=== PATIENT | female | born 1975 | race Caucasian/White ===

== ENCOUNTER 2023-01-18 10:48 | Outpatient (CLI) | payer MEDICAID, SELFPAY | END 2023-01-18 10:49 | disposition home or self-care (01) | LOC: SPT 10:49 | PROVIDERS: PCP Registered Nurse; Visit Provider Podiatrist Foot & Ankle Surgery | DX: Z46.89 Encounter for fitting and adjustment of other specified devices (principal); M65.28 Calcific tendinitis, other site | CPT/HCPCS: 97760; L4361 ==

== ENCOUNTER → 2023-03-20 08:53 | Outpatient (BNVA) | payer MEDICAID, SELFPAY | PROVIDERS: PCP Registered Nurse; Visit Provider Podiatrist Foot & Ankle Surgery | DX: M65.28 Calcific tendinitis, other site (principal); S99.912A Unspecified injury of left ankle, initial encounter; X58.XXXA Exposure to other specified factors, initial encounter | CPT/HCPCS: 73610 ==

== ENCOUNTER 2023-06-16 06:18 | Day surgery (SDC) | payer MEDICAID, SELFPAY ==
[2023-06-16] VITALS (10 sets, daily range): BP systolic 128–149; BP diastolic 79–109; PULSE 70–86; RESP 12–18; TEMP 36.1–36.4; O2SAT 97–100; BMI 35.4
--- NOTE | 2023-06-16 | XR_ITS ---
WS: [id number] C-ARM RADIOGRAPHS LEFT FOOT; 1 IMAGES HISTORY: YOLETTE PICS COMPARISON: None available. Single image of the calcaneus is submitted. IMPRESSION: Intraoperative imaging. Single image of the calcaneus submitted.
[2023-06-16] MEDS: sodium chloride 0.9% 1,000 ML 30 ML IV (06:40)
[2023-06-16] MEDS: midazolam 1 mg/mL INJ 5 ML 5 MG IVP (07:06)
--- NOTE | 2023-06-16 07:10 | PC.NURSE ---
2 mg versed given for block per Dr Porter. Patient on bedside monitor. VSS.
--- NOTE | 2023-06-16 07:43 | PC.NURSE ---
Time out prior to block with Dr Porter, all agree. Pt tolerated block well.
--- NOTE | 2023-06-16 08:04 | ANES.PREANE2 ---
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 Operation Date: 06/16/23 08:00 Proposed Procedures p Tendon Repair Foot Achilles Tendon Repair(Left) - Hugo Lindsay DPM s Ankle Osteotomy/ Osteotomy with exostectomy left calcaneus(Left) - Hugo Lindsay DPM s Gastrocnemius Recession/Left gastrocnemius recessio(Left) - Hugo Lindsay DPM Was Beta Shaquille taken within 24 hours: N/A Was Clonidine taken within 24 hours: N/A Last intake: Intake Last Liquid Date 06/15/23 Last Liquid Time 21:30 Last Solid Date 06/15/23 Last Solid Time 21:30 Social No tobacco Exam alert, oriented x 3, clear to auscultation bilaterally and regular rate & rhythm Airway Submandibular: within normal limits Cervical ROM: within normal limits Mallampati: Class III Dentition: chipped History/ROS No significant history except as noted and No significant complaints Metabolic Thyroid Disease Anesthetic Plan ASA status: 2 Anesthesia: General and Regional (specify below) Other: Popliteal block requested by surgeon for post-op pain Risk of > 500 ml blood loss (7ml/kg in children): No Medications/Allergies Home Medications Medication Instructions Recorded Confirmed Last Taken Type Cam Boot to left #1 ea 01/18/23 06/16/23 Unknown Rx etonogestrel 0.12 mg-ethinyl 0.12 ea vaginal DIRECTED 01/18/23 06/16/23 06/16/23 History estradiol 0.015 mg/24 hr vaginal ring (Hector) levothyroxine 112 mcg tablet 112 mcg PO DAILY 01/18/23 06/16/23 06/14/23 History oxybutynin chloride 5 mg 5 mg PO DAILY 01/18/23 06/16/23 06/15/23 History tablet,extended release 24 hr Heel lift to left #1 ea 02/08/23 06/16/23 Unknown Rx hydrocodone 10 mg-acetaminophen 1 tab PO Q6H PRN pain 7 days #28 06/15/23 Unknown Rx 325 mg tablet tabs Allergies Allergy/AdvReac Type Severity Reaction Status Date / Time latex Allergy ALGY-Rash Verified 06/16/23 06:29 Current Medications Generic Name Dose Route Start Last Admin Trade Name Freq PRN Reason Stop Dose Admin Sodium Chloride 1,000 mls @ 30 mls/hr 06/16/23 06:30 06/16/23 06:40 Sodium Chloride 0.9% IV 06/17/23 06:29 30 mls/hr .Q24H INO Administration Data Anesthesia Cardiac Studies: No Data to Display
--- NOTE | 2023-06-16 08:06 | W.PM.OPSUD ---
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
[2023-06-16 08:31] LABS: OR HCG Qualitative Urine Negative (Negative)
[2023-06-16] MEDS: ceFAZolin 2,000 MG in sodium chloride 0.9% (plus) 50 ML 100 MG IV (08:33)
--- NOTE | 2023-06-16 09:49 | P.BOP_ITS ---
Date of Procedure: 06/16/23 Surgeon: Hugo Lindsay D.P.M. Cargo And Container Inspector(s): Berna EDOUARD Alex Procedure(s) performed: Left Caridad's resection and Achilles repair. Findings of the procedure(s): None Estimated blood loss: 5 mL Specimen(s) removed: None Post-operative diagnosis: Left Caridad's with left Achilles tear. No complications with anesthesia or surgery.
--- NOTE | 2023-06-16 14:24 | ANE.PACU2 ---
Inpatient post-anesthesia follow up: Airway intact: Yes Vital signs: Temperature 97.0 F Pulse Rate 76 Respiratory Rate 18 Blood Pressure 144/95 Pulse Oximetry 99 Oxygen Delivery Me thod Room Air Oxygen Flow Rate Fraction of Inspir ed Oxygen Hydration adequate: Yes Nausea and vomiting: No Pain level: Other Pain level: No pain Mental status: Baseline
--- NOTE | 2023-06-16 15:17 | P.OP_ITS ---
Operative Report Date of procedure: June 16, 2023 Pre-op diagnosis: Caridad's deformity left heel. Calcaneal spur, left. Left Achilles tendinosis. Post-op diagnosis: Same Procedure done: Left Achilles tendon repair. CPT code 04058 Exostectomy of left calcaneus. CPT code 73424 Implants: Arthrex Achilles speed bridge with ripstop 3-0 Vicryl, 4-0 Vicryl, 4-0 nylon Specimens removed/disposition: None Pathology: None Surgeon: Hugo Lindsay DPM Supervisor White Sugar: Christopher EDOUARD Estimated blood loss: 5 See intraoperative documentation IV fluids: See intraoperative documentation s Urine output: None Complications: None Brief History: 48 year old female patient presenting to clinic for a surgical planning consult. Patient has a calcific Achilles tendinitis to left. She reports doing at home physical therapy. Patient reports that her insurance denied in-house physical therapy. Patient states that she wants to have surgery as soon as possible. Symptoms remain unchanged, she still has pain with everyday activities standing/walking. Has been doing at home physical therapy consisting of heel lift, supportive shoes, stretching and eccentric loading, anti-inflammatories [id number]. 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 Would like to stage out a surgical approach after 's Day which is the busiest time of the year for her bakery. Discussed risks versus benefits of Achilles tendon debridement and excision of enthesop hyte and calcified loose body, may require an FHL transfer depending intraoperative findings and overall quality of Achilles tendon. MRI shows intrasubstance tearing and tendinosis. Patient wishes to proceed with surgical intervention at next available opportunity which would entail left gastrocnemius recession, Caridad's resection and Achilles repair. I reviewed at length with the patient, the risks, potential complications, benefits, alternatives, expectations, and typical outcomes associated with the surgery. The risks and potential complications were explained in detail, including but not limited to infection, wound dehiscence or soft tissue complications, bleeding and hematoma, chronic edema, neuritis or nerve damage producing numbness or chronic pain, CRPS, failure to relieve pain or worsening pain, thick / painful / unsightly scar, limited motion / stiffness, malposition, delayed union, malunion, or nonunion, fracture, reaction to implants, anesthetic complications, venous th romboembolism, and deformity recurrence. I discussed the notion of no regrets with the patient as it pertains to complications and outcomes. The patient seemed to understand the nature of the proposed care and required convalescence. They asked appropriate questions, answered to their satisfaction. They are aware no guarantees can be made as to a satisfactory outcome and they understand there may be other possible unforeseen complications or outcomes not listed here that will be treated accordingly if they arise. There were no written or implied guarantees given to the patient. They gave informed consent to proceed. Procedure: Anesthesia and Positioning: After obtaining informed consent, the patient was taken to the operating room and placed under general anesthesia with preoperative left popliteal block per anesthesia. The patient was positioned prone on the operating table with appropriate padding under the bony prominences. 2. Preparation and Drape: The left lower extremity was prepped and draped in the usual sterile fashion, ensuring that the operative site was adequately exposed. 3. Incision: A longitudinal incision was made medial to the midline over the Achilles tendon, extending from the level of the superior aspect of the calcaneal tuberosity proximally towards the mid-calf. 4. Exposure: The subcutaneous tissue was carefully dissected to expose the Achilles tendon and the underlying Caridad's deformity. Care was taken to protect the sural nerve and lesser saphenous vein. 5. Caridad's Resection: The prominent bony exostosis (Caridad's deformity) was identified. Using an osteotome and a rongeur, the exostosis was carefully resected, and the area was smoothed with a bone rasp. 6. Achilles Tendon Repair: Inspection of the Achilles tendon revealed mid substance tearing and mucoid degeneration with thickening and disorganized collagen fibers that were sharply debrided. The degenerated portion of the tendon was debrided back to healthy tissue. The Achilles tendon was then repaired using the Achilles SpeedBridge technique. This involved placing suture anchors at the calcaneal insertion of the Achilles tendon, passing FiberWire sutures through the tendon, and securing the tendon back to its anatomical position with a knotless bridging construct to allow for optimal tensioning and footprint coverage. 7. Closure: The wound was irrigated with sterile saline. The subcutaneous tissue and skin were then closed in layers using absorbable sutures for the subcutaneous layer and 4-0 nylon for the skin closure. A sterile dressing was applied. 8. Postoperative Care: The patient's leg was placed in a multilayer compressive posterior splint in equinus position to immobilize the ankle and allow for tendon healing.
== END 2023-06-16 11:05 | disposition home or self-care (01) ==
PROVIDERS: Student in an Organized Health Care Education/Training Program; PCP Registered Nurse; Visit Provider Podiatrist Foot & Ankle Surgery
PROC: (CPT 27654; principal; 2023-06-16 07:50)
PROC: (CPT 27654; 2023-06-16 07:50)
PROC: (CPT 27687; 2023-06-16 07:50)
DX: M92.62 Juvenile osteochondrosis of tarsus, left ankle (principal); M77.32 Calcaneal spur, left foot; M76.62 Achilles tendinitis, left leg
CPT/HCPCS: 27654; 28120; 73620; 76000; 81025; 84703; J0690; J1100; J2250; J2405; J2704; J2795; J3010; J7030

== ENCOUNTER 2023-06-21 22:20 | Emergency (ER) | payer MEDICAID, SELFPAY ==
[2023-06-21 22:23] VITALS: BP 100/59; PULSE 103; RESP 18; TEMP 36.4; O2SAT 98
[2023-06-21 22:51] VITALS: BP 109/76; PULSE 93; RESP 14; O2SAT 96
--- NOTE | 2023-06-21 22:51 | XRR_ITS ---
PROCEDURE INFORMATION: Exam: XR Chest Exam date and time: 06/21/2023 10:58 PM Age: 48 years old Clinical indication: Cough and dyspnea; Additional info: Fever/cough TECHNIQUE: Imaging protocol: Radiologic exam of the chest. Views: 1 view. COMPARISON: No relevant prior studies available. FINDINGS: Lungs: Unremarkable. No consolidation. Pleural spaces: Unremarkable. No pleural effusion. No pneumothorax. Heart/Mediastinum: Unremarkable. No cardiomegaly. Bones/joints: Unremarkable. XR/XR chest 1V portable [id number] IMPRESSION: No acute findings.
[2023-06-21 23:00] VITALS: BP 105/72; PULSE 81; RESP 15; O2SAT 100
[2023-06-21] MEDS: sodium chloride 0.9% 1,000 ML 999 ML IV (23:25)
[2023-06-21 23:27] LABS: Basophils # 0.1 10^3/uL (0.0-0.1); Basophils % 0.6 %; Eosinophils # 0.1 10^3/uL (0.0-0.8); Eosinophils % 1.1 %; Hematocrit 39.3 % (36-47); Lymphocytes # 1.8 10^3/uL (0.8-4.8); Lymphocytes % 16.6 %; Mean Corpuscular HGB Conc 32.1 g/dL (30-55); Mean Corpuscular Hemoglobin 28.8 pg (27-33); Mean Corpuscular Volume 89.7 fl (85-98); Mean Platelet Volume 10.5 fL (7.4-10.4); Monocytes # 0.8 10^3/uL (0.2-0.9); Monocytes % 7.1 %; Neutrophils # 8.07 10^3/uL (1.8-7.7); Neutrophils % 74.1 %; Nucleated Red Blood Cells % 0 %; Platelet Count 451 10^3/cmm (157-399); Red Blood Count 4.38 10^6/uL (3.85-5.65); Red Cell Distribution Width 15.9 % (12.1-15.1); White Blood Count 10.91 10^3/uL (3.29-11.43)
[2023-06-21 23:37] VITALS: BP 131/93; PULSE 73; RESP 14; O2SAT 92
[2023-06-21 23:57] LABS: Lactic Sepsis W/Reflex 1.4 mmol/L (0.5-2.2)
[2023-06-22 00:11] VITALS: BP 126/90; PULSE 68; RESP 16; O2SAT 98
[2023-06-22 00:23] LABS: Glucose Urine UA Norm (Normal); Ketones Urine Negative (Negative); Protein Urine 1+ (Negative); Urine Appearance Cloudy (CLEAR); Urine Color Dark Yellow (Yellow); pH Urine 5 (5-7)
[2023-06-22 00:24] LABS: Add Urine Microscopic? YES; Bilirubin Urine Neg (Negative); Blood Urine 3+ (Negative); Leukocyte Esterase Urine Trace (Negative); Nitrate Urine Negative (Negative); Urobilinogen Urine Neg (Negative)
[2023-06-22 00:24] LABS: Alanine Aminotransferase 13 U/L (0-33); Albumin Level 3.6 g/dL (3.5-5.2); Alkaline Phosphatase 117 U/L (35-105); Anion Gap 18.2 (5-19); Aspartate Amino Transferase 10 U/L (0-32); Blood Urea Nitrogen 13 mg/dL (6-20); Calcium 8.5 mg/dL (8.5-10.5); Carbon Dioxide 18 mmol/L (22-29); Chloride 107 mmol/L (98-107); Creatinine Clr Calc Pharmacy 103.9424; Globulin 3.3 g/dL (1.3-4.6); Glomerular Filtration Rate 88.9 mL/min (90-130); Glucose 110 mg/dL (65-115); Osmolality Calculated 289 mOsm/kg (285-295); Potassium 4.2 mmol/L (3.5-5.1); Sodium 139 mmol/L (136-145); Total Bilirubin 0.2 mg/dL (0.15-1.2); Total Protein 6.9 g/dL (6.6-8.7)
[2023-06-22 00:25] LABS: Add Urine Culture? No; Bacteria Urine 1+ /hpf; Mucus Urine 3+ /hpf; RBC Urine 50-80 /hpf (0-2); WBC Urine 0-4 /hpf (0-5)
--- NOTE | 2023-06-22 00:28 | W.ED.DIZZY ---
HPI - Dizziness General: Chief Complaint: Dizziness Stated Complaint: rash left leg dizzy post op fri left foot Time Seen by Provider: 06/21/23 22:34 History of Present Illness: HPI Narrative: 48-year-old female presents to the emergency department with complaints of feeling intermittently dizzy after she took Benadryl earlier this evening. She states she recently had surgery on her left Achilles tendon and has been taking pain medications intermittently and felt like she had a rash after she took her pain medications. She states she did contact her surgeon office and was advised to take Benadryl. She states that she has been doing well since her surgery and only became dizzy after taking the Benadryl and taking a nap. She states her dizziness is now resolved and so has her rash. She does endorse increased urinary frequency. Review of Systems General: Reports: 10 or more systems reviewed and unremarkable except in HPI and below : Reports: dysuria and urinary frequency Neuro: Reports: dizziness Physical Exam Narrative: EXAM NARRATIVE: Constitutional: the patient appears well nourished and of normal development. Vital signs as documented. No acute distress at present. Alert and oriented-to person, place, time and situation. Head, eyes, ears, nose, mouth, throat: Normocephalic, atraumatic. Pupils-equal, round, reactive to light. No scleral icterus. Normal-appearing external ears. Normal appearing nasal turbinates, no drainage. No obvious oral lesions, posterior oropharynx without erythema or exudates. Neck: Supple, trachea is midline, no lymphadenopathy, no jugular venous distension, thyromegaly, or carotid bruits. Carotid upstrokes are brisk bilaterally. Lungs: clear to auscultation to all lung zaragoza. Symmetrical rise and fall of chest, no obvious signs of increased work of breathing at present. Cardiac: Regular rate and rhythm, positive S1, S2. No murmurs, rubs or gallops that I can appreciate Abdomen: Soft, non-tender to palpation, normal active bowel sounds to all quadrants. No palpable masses, no organomegaly and abdominal bruits. Extremities: 2+ pulses in the upper extremities that are equal bilaterally, 2+ pulses in the lower extremities that are equal bilaterally. Left lower extremity with bulky dressing no obvious drainage. Moves all extremities well, sensation to all extremities are noted. Skin: Warm, dry, intact. Course Vital Signs: Vital signs: Vital Signs Temperature 97.6 F 06/21/23 22:23 Pulse Rate 70 06/22/23 00:31 Respiratory Rate 22 H 06/22/23 00:31 Blood Pressure 118/90 06/22/23 00:31 Pulse Oximetry 98 06/22/23 00:31 Oxygen Delivery Me thod Room Air 06/21/23 22:23 MDM - Dizziness Medical Decision Making Physical exam completed and documented, CBC and CMP are essentially normal lactic acid was within normal range. Urinalysis did demonstrate findings consistent with urinary tract infection chest x-ray without acute findings. Patient's rash had subsided prior to coming to the emergency department I suspect most likely that the patient's initial rash was secondary to her pain medication from her recent surgical intervention and her intermittent dizziness that has resolved since presenting to the emergency department was from her Benadryl use. I have provided the patient IV antibiotics for her urinary tract infection and will prescribe her antibiotics upon discharge today. Medical Records I reviewed the patient's medical records. Lab Data I reviewed the patient's lab results. 06/21/23 23:13 06/21/23 23:55 Radiology Impressions Chest X-Ray 06/21/23 22:51 IMPRESSION: No acute findings. Laboratory Results WBC 10.91 10^3/uL (3.29-11.43) 06/21/23 23:13 RBC 4.38 10^6/uL (3.85-5.65) 06/21/23 23:13 Hgb 12.60 g/dL (11.27-16.99) 06/21/23 23:13 Hct 39.3 % (36-47) 06/21/23 23:13 MCV 89.7 fl (85-98) 06/21/23 23:13 MCH 28.8 pg (27-33) 06/21/23 23:13 MCHC 32.1 g/dL (30-55) 06/21/23 23:13 RDW 15.9 % (12.1-15.1) H 06/21/23 23:13 Plt Count 451 10^3/cmm (157-399) H 06/21/23 23:13 MPV 10.5 fL (7.4-10.4) H 06/21/23 23:13 Neut % (Auto) 74.1 % 06/21/23 23:13 Lymph % (Auto) 16.6 % 06/21/23 23:13 [place] % (Auto) 7.1 % 06/21/23 23:13 Eos % (Auto) 1.1 % 06/21/23 23:13 Baso % (Auto) 0.6 % 06/21/23 23:13 Neut # (Auto) 8.07 10^3/uL (1.8-7.7) H 06/21/23 23:13 Lymph # (Auto) 1.8 10^3/uL (0.8-4.8) 06/21/23 23:13 [place] # (Auto) 0.8 10^3/uL (0.2-0.9) 06/21/23 23:13 Eos # (Auto) 0.1 10^3/uL (0.0-0.8) 06/21/23 23:13 Baso # (Auto) 0.1 10^3/uL (0.0-0.1) 06/21/23 23:13 Nucleated RBC % (auto) 0 % 06/21/23 23:13 Nucleated RBCs # 0.0 /100WBC 06/21/23 23:13 Sodium 139 mmol/L (136-145) 06/21/23 23:55 Potassium 4.2 mmol/L (3.5-5.1) 06/21/23 23:55 Chloride 107 mmol/L (98-107) 06/21/23 23:55 Carbon Dioxide 18 mmol/L (22-29) L 06/21/23 23:55 Anion Gap 18.2 (5-19) 06/21/23 23:55 BUN 13 mg/dL (6-20) 06/21/23 23:55 Creatinine 0.7 mg/dL (0.5-0.9) 06/21/23 23:55 GFR Calculation 88.9 mL/min (90-130) L 06/21/23 23:55 Glucose 110 mg/dL (65-115) 06/21/23 23:55 Calculated Osmolality 289 mOsm/kg (285-295) 06/21/23 23:55 Lactic Acid 1.4 mmol/L (0.5-2.2) 06/21/23 23:13 Calcium 8.5 mg/dL (8.5-10.5) 06/21/23 23:55 Total Bilirubin 0.2 mg/dL (0.15-1.2) 06/21/23 23:55 AST 10 U/L (0-32) 06/21/23 23:55 ALT 13 U/L (0-33) 06/21/23 23:55 Alkaline Phosphatase 117 U/L (35-105) H 06/21/23 23:55 Total Protein 6.9 g/dL (6.6-8.7) 06/21/23 23:55 Albumin 3.6 g/dL (3.5-5.2) 06/21/23 23:55 Globulin 3.3 g/dL (1.3-4.6) 06/21/23 23:55 Procalcitonin 0.05 ng/mL (0-0.5) 06/21/23 23:55 Urine Color Dark yellow (Yellow) 06/22/23 00:07 Urine Appearance Cloudy (CLEAR) A 06/22/23 00:07 Urine pH 5 (5-7) 06/22/23 00:07 Ur Specific [place] 1.020 (1.005-1.030) 06/22/23 00:07 Urine Protein 1+ (Negative) H 06/22/23 00:07 Urine Glucose (UA) Norm (Normal) 06/22/23 00:07 Urine Ketones Negative (Negative) 06/22/23 00:07 Urine Blood 3+ (Negative) H 06/22/23 00:07 Urine Nitrate Negative (Negative) 06/22/23 00:07 Urine Bilirubin Neg (Negative) 06/22/23 00:07 Urine Urobilinogen Neg mg/dL (Negative) 06/22/23 00:07 Ur Leukocyte Esterase Trace (Negative) H 06/22/23 00:07 Urine RBC 50-80 /hpf (0-2) H 06/22/23 00:07 Urine WBC 0-4 /hpf (0-5) H 06/22/23 00:07 Ur Squamous Epith Cells 10-15 /hpf (0-5) H 06/22/23 00:07 Amorphous Sediment Not Reportable 06/22/23 00:07 Urine Bacteria 1+ /hpf (NONE) H 06/22/23 00:07 Urine Mucus 3+ /hpf 06/22/23 00:07 All radiology interpretation(s) finalized by discharge Discharge Plan Discharge Patient Disposition: Home Clinical Impression: Vertigo UTI (urinary tract infection) Qualifiers: Urinary tract infection type: acute cystitis Hematuria presence: with hematuria Qualified Code(s): N30.01 - Acute cystitis with hematuria Condition: Stable Prescriptions: New Macrobid 100 mg capsule 100 mg PO Q12H 7 Days Qty: 14 0RF Rx Instructions: must administer with a meal/food No Action etonogestrel-ethinyl estradiol [EluRyng] 0.12-0.015 mg/24 hr ring 0.12 ea vaginal DIRECTED levothyroxine 112 mcg tablet 112 mcg PO DAILY oxybutynin chloride 5 mg tablet extended release 24hr 5 mg PO DAILY (DME) Cam Boot to left See Rx Instructions .Route .MEDSUPPLY Qty: 1 0RF Rx Instructions: As directed (DME) Heel lift to left See Rx Instructions .Route .MEDSUPPLY Qty: 1 0RF Rx Instructions: As directed hydrocodone-acetaminophen 10-325 mg tablet 1 tab PO Q6H PRN (Reason: pain) 7 Days Qty: 28 0RF Discharge Orders: Discharge ED (Routine); Ordered 06/22/23 Ordered By: Georgi Buitrago Referrals: Fareed Artis MILITARY SCIENCE TEACHER [Primary Care Provider] - Discharge Diet: Usual diet Discharge Activity: Limit activity as instructed Patient Instructions: Opioid Safety, Pain Management Activity Restrictions/Additional Instructions: Activity Restrictions/Additional Instructions: Thank you for choosing [facility] for your healthcare needs today. Please realize that you were seen in the Emergency Department and that we are providing you with an emergency medical screening exam and this may not be a complete and all inclusive of all the testing and or medical work-up that you may need to determine your ailment or severity of your illness. It is very important that you follow-up as instructed with your Primary care provider or Specialist for additional evaluation and to discuss your medical treatment plan. Coding Level of Care Code ED Vp Public Relations for Cheryle Gurrola
[2023-06-22 00:29] LABS: Procalcitonin 0.05 ng/mL (0-0.5)
[2023-06-22 00:31] VITALS: BP 118/90; PULSE 70; RESP 22; O2SAT 98
[2023-06-22] MEDS: cefTRIAXone 1,000 MG in sodium chloride 0.9% (plus) 50 ML 100 MG IV (00:37)
[2023-06-22 01:08] VITALS: BP 123/70; PULSE 73; RESP 20; O2SAT 96
== END 2023-06-22 01:09 | disposition home or self-care (01) ==
PROVIDERS: Emergency Provider Internal Medicine; PCP Registered Nurse
DX: R42 Dizziness and giddiness (principal); N30.01 Acute cystitis with hematuria
CPT/HCPCS: 36415; 71045; 80053; 81001; 83605; 84145; 85025; 96365; 99284; J0696; J7030

== ENCOUNTER 2023-07-06 14:25 | Outpatient (CLI) | payer MEDICAID, SELFPAY ==
--- NOTE | 2023-07-06 14:45 | USCV_ITS ---
Link Maribel Age: 48 Gender: F : 1975 Exam Date: 07/06/2023 14:44 Ordering Phys: Hugo Lindsay DPM Technologist: MANNY [place]am Location[place] [facility] [place] Indication: PAIN HISTORY: Lower extremity pain. PROCEDURES: Venous duplex imaging was performed in only the left lower extremity. The following venous structures were evaluated: common femoral vein, profunda vein, proximal portion of the greater saphenous vein, superficial femoral vein, and the popliteal vein. In addition, the posterior tibial and peroneal trunk were evaluated. Serial compression, augmentation maneuvers, and spectral Doppler flow evaluation were performed. FINDINGS: PT APPEAR TO HAVE NONCOMPRESSIBLE PTV DUE TO AN ACUTE DVT. CONCLUSIONS Acute DVT LEFT PTV Remainder LLE vessels are patent Prelim to Dr Lindsay by Car Repair Supervisor at time of exam Rk Carrera MD (Electronically Signed) Final Date: 06 July 2023 15:50 S
== END 2023-07-06 14:26 | disposition home or self-care (01) ==
LOC: RAD 14:25
PROVIDERS: PCP Registered Nurse; Visit Provider Podiatrist Foot & Ankle Surgery
DX: Z98.890 Other specified postprocedural states (principal); M79.662 Pain in left lower leg
CPT/HCPCS: 93971

== ENCOUNTER 2023-07-06 15:22 | Emergency (ER) | payer MEDICAID, SELFPAY ==
[2023-07-06 15:30] VITALS: BP 177/83; PULSE 63
[2023-07-06 15:34] VITALS: BP 159/113; PULSE 125; RESP 16; TEMP 36.6; O2SAT 92
--- NOTE | 2023-07-06 15:37 | CTR_ITS ---
PROCEDURE INFORMATION: Exam: CTA Chest With Contrast Exam date and time: 07/06/2023 4:01 PM Age: 48 years old Clinical indication: Shortness of breath; Patient HX: Positive dvt; Additional info: SOB TECHNIQUE: Imaging protocol: Computed tomographic angiography of the chest with contrast. Exam focused on the arteries. 3D rendering (Not supervised by radiologist): MIP and/or 3D reconstructed images were created by the technologist. Radiation optimization: All CT scans at this facility use at least one of these dose optimization techniques: automated exposure control; mA and/or kV adjustment per patient size (includes targeted exams where dose is matched to clinical indication); or iterative reconstruction. Contrast material: OMNI 350; Contrast volume: 50 ml; Contrast route: INTRAVENOUS (IV); COMPARISON: CR (CHEST, ) 06/21/2023 10:58 PM RADIATION DOSE METRICS: Total DLP (mGy-cm): 411.58 FINDINGS: Pulmonary arteries: Evaluation for pulmonary thromboembolism is limited beyond the segmental level due to respiratory motion. No convincing evidence of PE. There is hypoattenuation in the region of the lingular subsegmental branches, favored to be secondary to motion (for example, images 202-212 of series 6). Aorta: No evidence of aneurysmal dilatation or dissection of the thoracic aorta. Thyroid: Grossly unremarkable. Lungs: No focal consolidation. No evidence of pneumonia. Pleural spaces: No evidence of pleural effusion. No pneumothorax. Heart: No cardiomegaly. No pericardial effusion. Mediastinal space: No evidence of mediastinal mass, fluid collection or hematoma. Lymph nodes: No mediastinal or hilar adenopathy. Bones/joints: No evidence of acute fracture or aggressive osseous lesion. Soft tissues: No evidence of fluid collection or hematoma in the superficial soft tissues. Other findings: No evidence of acute abnormality in the upper abdomen. CT/CT angio chest PE protcl [id number] IMPRESSION: 1. No evidence of PE or acute aortic abnormality. There is hypoattenuation in the region of the lingular subsegmental branches, favored to be secondary to motion. If there is ongoing clinical concern and left-sided symptoms, consider repeat bolus.
--- NOTE | 2023-07-06 15:38 | ECG_ITS ---
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 Measurements Intervals [place] Rate: 119 P: 67 PA: 165 QRS: 17 QRSD: 77 T: 59 QT: 308 QTc: 433 Interpretive Statements SINUS TACHYCARDIA LOW QRS VOLTAGE IN PRECORDIAL LEADS [QRS DEFLECTION < 1.0 mV IN CHEST LEADS] No previous ECG available for comparison Electronically Signed On 07-06-2023 16:12:57 CDT by Joe Tompkins M.D. [email or web address]
--- NOTE | 2023-07-06 15:48 | W.ED.EXTPRO ---
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 Patient was sent here to rule out a PE states she had some mild dyspnea she denies any severe dyspnea but has had some slight shortness of breath she denies any chest pain has no other complaints at this time she has had some leg swelling as what to get the ultrasound for Associated symptoms: Deny chest pain, fever(s) or rash Review of Systems Const: Denies: fever(s), chills, body aches or change in appetite ENMT: Denies: throat pain or dental pain Card: Denies: chest pain Resp: Reports: dyspnea GI: Denies: abdominal pain, nausea, vomiting or diarrhea Musc: Reports: extremity swelling; Denies: neck pain or back pain Skin/Breast: Denies: rash Neuro: Denies: headache(s) [facility] ED Female Reproductive History: Date of last menstrual period: 07/06/23 Physical Exam Const: COMMON NORMALS: no acute distress, patient oriented x3 and healthy appearing HENMT: COMMON NORMALS: normocephalic and atraumatic HEAD & SCALP: normocephalic and atraumatic Neck/C-Spine: COMMON NORMALS: full ROM and supple Chest: COMMONS NORMALS: normal inspection of the chest Resp: COMMON NORMALS: normal respiratory effort, No retractions, No use of accessory muscles and clear to auscultation bilaterally AUSCULTATION: clear to auscultation bilaterally Cardio: COMMON NORMALS: regular rhythm and No murmurs present (Cardio) RATE: tachycardic RHYTHM: regular rhythm GI: COMMON NORMALS: Normal to inspection, nondistended, normoactive bowel sounds present, Soft to palpation, non-tender and no masses PALPATION: Yes Soft to palpation Extremity: COMMON NORMALS: normal to inspection and full ROM Neuro: COMMON NORMALS: patient oriented x3, moves all extremities and no focal motor deficits Psych: COMMON NORMALS: mental status grossly normal, Normal thought process present and cooperative THOUGHT PROCESS: Normal thought process present Skin: COMMON NORMALS: no rashes or lesions noted and no wounds GENERAL SKIN EXAM: no rashes or lesions noted Course Vital Signs: Vital signs: Vital Signs Temperature 98 F 07/06/23 15:34 Pulse Rate 125 H 07/06/23 15:34 Respiratory Rate 16 07/06/23 15:34 Blood Pressure 159/113 07/06/23 15:34 Pulse Oximetry 92 07/06/23 15:34 Oxygen Delivery Me thod Room Air 07/06/23 15:34 MDM - Extremity (Nontraumatic) Medical Decision Making Patient presents here with DVT patient CT shows no signs of a PE patient stable for discharge at this time will place on [facility]. Medical Records I reviewed the patient's medical records. Lab Data I reviewed the patient's lab results. 07/06/23 15:49 07/06/23 15:49 Radiology Impressions Chest CTA 07/06/23 15:37 IMPRESSION: 1. No evidence of PE or acute aortic abnormality. There is hypoattenuation in the region of the lingular subsegmental branches, favored to be secondary to motion. If there is ongoing clinical concern and left-sided symptoms, consider repeat bolus. Laboratory Results WBC 10.70 10^3/uL (3.29-11.43) 07/06/23 15:49 RBC 4.06 10^6/uL (3.85-5.65) 07/06/23 15:49 Hgb 11.90 g/dL (11.27-16.99) 07/06/23 15:49 Hct 36.7 % (36-47) 07/06/23 15:49 MCV 90.4 fl (85-98) 07/06/23 15:49 MCH 29.3 pg (27-33) 07/06/23 15:49 MCHC 32.4 g/dL (30-55) 07/06/23 15:49 RDW 15.5 % (12.1-15.1) H 07/06/23 15:49 Plt Count 441 10^3/cmm (157-399) H 07/06/23 15:49 MPV 10.4 fL (7.4-10.4) 07/06/23 15:49 Neut % (Auto) 71.8 % 07/06/23 15:49 Lymph % (Auto) 17.1 % 07/06/23 15:49 Roberts % (Auto) 8.6 % 07/06/23 15:49 Eos % (Auto) 1.3 % 07/06/23 15:49 Baso % (Auto) 0.7 % 07/06/23 15:49 Neut # (Auto) 7.69 10^3/uL (1.8-7.7) 07/06/23 15:49 Lymph # (Auto) 1.8 10^3/uL (0.8-4.8) 07/06/23 15:49 Roberts # (Auto) 0.9 10^3/uL (0.2-0.9) 07/06/23 15:49 Eos # (Auto) 0.1 10^3/uL (0.0-0.8) 07/06/23 15:49 Baso # (Auto) 0.1 10^3/uL (0.0-0.1) 07/06/23 15:49 Nucleated RBC % (auto) 0 % 07/06/23 15:49 Nucleated RBCs # 0.0 /100WBC 07/06/23 15:49 Sodium 137 mmol/L (136-145) 07/06/23 15:49 Potassium 4.1 mmol/L (3.5-5.1) 07/06/23 15:49 Chloride 106 mmol/L (98-107) 07/06/23 15:49 Anion Gap 16.1 (5-19) 07/06/23 15:49 BUN 13 mg/dL (6-20) 07/06/23 15:49 Creatinine 0.7 mg/dL (0.5-0.9) 07/06/23 15:49 Calculated Osmolality 286 mOsm/kg (285-295) 07/06/23 15:49 Calcium 8.6 mg/dL (8.5-10.5) 07/06/23 15:49 Total Bilirubin 0.2 mg/dL (0.15-1.2) 07/06/23 15:49 AST 12 U/L (0-32) 07/06/23 15:49 ALT 19 U/L (0-33) 07/06/23 15:49 Troponin T Baseline 10 ng/L (0-10) 07/06/23 15:49 NT-Pro-B Natriuret Pep < 36 pg/mL (0-125) 07/06/23 15:49 Total Protein 6.8 g/dL (6.6-8.7) 07/06/23 15:49 Albumin 3.9 g/dL (3.5-5.2) 07/06/23 15:49 Globulin 2.9 g/dL (1.3-4.6) 07/06/23 15:49 All radiology interpretation(s) finalized by discharge EKG Data EKG 1: I personally reviewed and interpreted this EKG as follows: EKG interpretation date: 07/06/23 EKG interpretation time: 15:50 Interpretation: sinus tach hr [address] or t wave abnormalities qrs 77 qtc 378 Discharge Plan Discharge Patient Disposition: Home Clinical Impression: Deep vein thrombosis of lower extremity Condition: Stable Prescriptions: New Eliquis 5 mg tablet 10 mg PO BID 7 Days Qty: 28 0RF Eliquis 5 mg tablet 5 mg PO BID Qty: 60 0RF Rx Instructions: start after first week loading dose No Action etonogestrel-ethinyl estradiol [EluRyng] 0.12-0.015 mg/24 hr ring 0.12 ea vaginal DIRECTED oxybutynin chloride 5 mg tablet extended release 24hr 5 mg PO DAILY (DME) Cam Boot to left See Rx Instructions .Route .MEDSUPPLY Qty: 1 0RF Rx Instructions: As directed (DME) Heel lift to left See Rx Instructions .Route .MEDSUPPLY Qty: 1 0RF Rx Instructions: As directed (DME) CAM walker with Achilles Wedge See Rx Instructions .Route .MEDSUPPLY Qty: 1 0RF Rx Instructions: As directed hydrocodone-acetaminophen 7.5-325 mg tablet 1 tab PO Q12H PRN (Reason: pain) 7 Days Qty: 14 0RF Aspir-81 81 mg Tablet,Delayed Release (Dr/Ec) 81 mg PO DAILY levothyroxine 125 mcg tablet 125 mcg PO DAILY lisinopril 10 mg tablet 10 mg PO DAILY Discharge Orders: Discharge ED (Routine); Ordered 07/06/23 Ordered By: Marco Sandra Referrals: Fareed Artis, GEAR HOBBER [Primary Care Provider] - Discharge Diet: Advance as tolerated Discharge Activity: Resume usual activity Patient Instructions: Deep Vein Thrombosis (ED) Coding Level of Care Code ED [employer] Salesperson for [employer]
[2023-07-06 15:56] LABS: Basophils # 0.1 10^3/uL (0.0-0.1); Basophils % 0.7 %; Eosinophils # 0.1 10^3/uL (0.0-0.8); Eosinophils % 1.3 %; Hematocrit 36.7 % (36-47); Lymphocytes # 1.8 10^3/uL (0.8-4.8); Lymphocytes % 17.1 %; Mean Corpuscular HGB Conc 32.4 g/dL (30-55); Mean Corpuscular Hemoglobin 29.3 pg (27-33); Mean Corpuscular Volume 90.4 fl (85-98); Mean Platelet Volume 10.4 fL (7.4-10.4); Monocytes # 0.9 10^3/uL (0.2-0.9); Monocytes % 8.6 %; Neutrophils # 7.69 10^3/uL (1.8-7.7); Neutrophils % 71.8 %; Nucleated Red Blood Cells % 0 %; Platelet Count 441 10^3/cmm (157-399); Red Blood Count 4.06 10^6/uL (3.85-5.65); Red Cell Distribution Width 15.5 % (12.1-15.1)
[2023-07-06 16:00] VITALS: PULSE 142; O2SAT 90
[2023-07-06] MEDS: iohexol 350 mg/mL 500 mL Btl (per mL) IV (16:09)
[2023-07-06 16:24] LABS: Troponin(5th) Baseline 10 ng/L (0-10)
[2023-07-06 16:33] LABS: Alanine Aminotransferase 19 U/L (0-33); Albumin Level 3.9 g/dL (3.5-5.2); Alkaline Phosphatase 120 U/L (35-105); Anion Gap 16.1 (5-19); Aspartate Amino Transferase 12 U/L (0-32); Blood Urea Nitrogen 13 mg/dL (6-20); Calcium 8.6 mg/dL (8.5-10.5); Carbon Dioxide 19 mmol/L (22-29); Chloride 106 mmol/L (98-107); Creatinine Clr Calc Pharmacy 103.9424; Globulin 2.9 g/dL (1.3-4.6); Glomerular Filtration Rate 88.9 mL/min (90-130); Glucose 132 mg/dL (65-115); NT Pro B Type Natriuretic Pept < 36 pg/mL (0-125); Osmolality Calculated 286 mOsm/kg (285-295); Potassium 4.1 mmol/L (3.5-5.1); Sodium 137 mmol/L (136-145); Total Bilirubin 0.2 mg/dL (0.15-1.2); Total Protein 6.8 g/dL (6.6-8.7)
[2023-07-06 17:15] VITALS: BP 120/96; PULSE 98; RESP 91; O2SAT 98
== END 2023-07-06 17:17 | disposition home or self-care (01) ==
PROVIDERS: Emergency Provider Emergency Medicine; PCP Registered Nurse
DX: I82.402 Acute embolism and thrombosis of unspecified deep veins of left lower extremity (principal); Z79.82 Long term (current) use of aspirin
CPT/HCPCS: 71275; 80053; 83880; 84484; 85025; 85378; 93005; 99285; Q9967

== ENCOUNTER → 2024-10-30 15:19 | Outpatient (BNVA) | payer OTHER, SELFPAY | PROVIDERS: PCP Registered Nurse; Visit Provider Podiatrist Foot & Ankle Surgery | DX: M25.572 Pain in left ankle and joints of left foot (principal); M76.62 Achilles tendinitis, left leg | CPT/HCPCS: 73610 ==